=== PATIENT | male | born 1965 | race Caucasian/White ===

== ENCOUNTER 2016-05-18 03:43 | Emergency (ER) | payer OTHER | END 2016-05-18 03:45 | disposition home or self-care (01) | LOC: CED 03:43 | DX: L03.115 Cellulitis of right lower limb (principal); E11.9 Type 2 diabetes mellitus without complications; F17.200 Nicotine dependence, unspecified, uncomplicated | CPT/HCPCS: 96372; 99283 ==

== ENCOUNTER 2016-09-13 02:28 | Emergency (ER) | payer OTHER | END 2016-09-13 06:33 | disposition home or self-care (01) | LOC: CED 02:28 | DX: L02.212 Cutaneous abscess of back [any part, except buttock and flank] (principal); E11.9 Type 2 diabetes mellitus without complications; F17.210 Nicotine dependence, cigarettes, uncomplicated; Z86.19 Personal history of other infectious and parasitic diseases | CPT/HCPCS: 10060; 82947; 87070; 87077; 87186; 87205; 99283 ==